=== PATIENT | female | born 1975 | race American Indian/Alaskan Native ===

== ENCOUNTER 2017-09-23 10:40 | Emergency (ER) | payer OTHER ==
[2017-09-23 10:45] VITALS: BP 136/73
--- NOTE | 2017-09-23 11:11 | Emergency Department Report ---
Chief Complaint: Vaginal Bleeding Stated Complaint: VAGINAL BLEEDING Time Seen by Provider: 09/23/17 11:09 - HPI History of Present Illness: 42-year-old female presents to the emergency department with complaint of some pelvic cramping and discomfort and some vaginal bleeding that started this morning. The patient did have intercourse last night. However the patient also has not had a regular menstrual cycle in multiple months. She has taken home test with negative results thus far. She has an OB/ RESPIRATORY CARE TECHNICIAN through [facility] jacob, Dr Bunn. - ROS Review of Systems: Positive for pelvic pain and vaginal bleeding, nausea without vomiting Negative for back pain, fever, dysuria, vaginal discharge - Exam Vital Signs: Vital Signs 09/23/17 10:42 Temperature 97.9 F Pulse Rate 77 Respiratory 18 Rate Blood Pressure 136/73 O2 Sat by Pulse 97 Oximetry Physical Exam: Patient is awake and alert in no acute distress. Heart and lungs sounds are normal to auscultation. No tenderness to palpation of the abdomen. MSE screening note: Focused history and physical exam performed. Due to findings the following was ordered: A CBC, urinalysis and urine test have been ordered. ED Disposition for MSE Condition: Stable Referrals: PRIMARY CARE, [Primary Care Provider] - 3-5 Days
[2017-09-23 11:39] LABS: HCG Qualitative,Urine Negative (Negative)
[2017-09-23 11:41] LABS: Bilirubin,Urine NEG (Negative); Blood,Urine LG (Negative); Color,Urine Yellow (Yellow); RBC,Urine > 182.0 /HPF (0.0-6.0); Urobilinogen,Urine < 2.0 mg/dL (<2.0)
[2017-09-23 11:48] LABS: Basophils % (Auto) 0.5 % (0.0-1.8); Eosinophils # (Auto) 0.1 K/mm3 (0.0-0.4); Eosinophils % (Auto) 1.4 % (0.0-4.3); Hematocrit 37.6 % (30.3-42.9); Hemoglobin 12.6 gm/dl (10.1-14.3); Lymphocytes % (Auto) 35.3 % (13.4-35.0); Mean Corpuscular HGB Conc 33 % (30-34); Mean Corpuscular Hemoglobin 32 pg (28-32); Mean Corpuscular Volume 96 fl (79-97); Monocytes # (Auto) 0.6 K/mm3 (0.0-0.8); Monocytes % (Auto) 10.7 % (0.0-7.3); Platelet Count 270 K/mm3 (140-440); Red Blood Count 3.92 M/mm3 (3.65-5.03); Red Cell Distribution Width 14.2 % (13.2-15.2)
[2017-09-23] MEDS ORDERED: NORCO 5/325 PO ONE (15:14)
--- NOTE | 2017-09-23 16:24 | Emergency Department Report ---
ED Female HPI - General Chief complaint: Vaginal Bleeding Stated complaint: VAGINAL BLEEDING Time Seen by Provider: 09/23/17 11:09 Source: patient Mode of arrival: Ambulatory Limitations: No Limitations - History of Present Illness Initial comments: This is a 42-year-old -[place] female that presents with abdominal cramping and vaginal bleeding that started this morning. Patient reports last period 07/16/2017. She had small amount of spotting. She does have a history of abnormal periods and fibroids. She did have intercourse last night and was concerned potentially something happened in between that time. She did take a home test and it was negative. Denies vaginal discharge fever, low back pain, pelvic pain, and nausea or vomiting. MD Complaint: vaginal bleeding -: This morning Location: other (generalized abdominal pain) Radiation: non-radiating Severity: mild Severity scale (0 -10): 5 Quality: cramping Consistency: intermittent Improves with: none Worsens with: none Are you Now?: No Last Menstrual Period: 07/16/17 EDC: 04/22/18 Associated Symptoms: vaginal bleeding, abdominal pain (cramping). denies: vaginal discharge, nausea/vomiting, fever/chills, headaches, loss of appetite, dysuria, hematuria, rash, seizure, shortness of breath, syncope, weakness - Related Data Sexually active: Yes : 0 Para: 0 A: 0 Allergies Allergy/AdvReac Type Severity Reaction Status Date / Time shellfish derived Allergy Hives Verified 09/23/17 10:42 ED Review of Systems ROS: Stated complaint: VAGINAL BLEEDING Other details as noted in HPI Constitutional: denies: chills, fever Respiratory: denies: cough, shortness of breath, wheezing Cardiovascular: denies: chest pain, palpitations Gastrointestinal: abdominal pain (cramping). denies: nausea, vomiting, diarrhea Genitourinary: abnormal menses (vaginal bleeding). denies: urgency, dysuria, frequency, hematuria, discharge Neurological: denies: headache, weakness, paresthesias Psychiatric: denies: anxiety, depression ED Past Medical Hx - Past Medical History Hx Psychiatric Treatment: Yes (depression) - Surgical History Past Surgical History?: No - Social History Smoking Status: Current Some Day Smoker Substance Use Type: Alcohol, Marijuana ED Physical Exam - General Limitations: No Limitations General appearance: alert, in no apparent distress - Respiratory Respiratory exam: Present: normal lung sounds bilaterally. Absent: respiratory distress, wheezes, rales, rhonchi, stridor, decreased breath sounds - Cardiovascular Cardiovascular Exam: Present: regular rate, normal rhythm, normal heart sounds. Absent: systolic murmur, diastolic murmur, rubs, gallop - GI/Abdominal GI/Abdominal exam: Present: soft, normal bowel sounds. Absent: distended, tenderness, guarding, rebound, rigid, organomegaly, mass - Neurological Exam Neurological exam: Present: alert, oriented X3, normal gait - Psychiatric Psychiatric exam: Present: normal affect, normal mood - Skin Skin exam: Present: warm, dry, intact, normal color. Absent: rash ED Course Vital Signs 09/23/17 10:42 Temperature 97.9 F Pulse Rate 77 Respiratory 18 Rate Blood Pressure 136/73 O2 Sat by Pulse 97 Oximetry ED Medical Decision Making - Lab Data Result diagrams: 09/23/17 11:27 - Medical Decision Making This is a 42 y.o. female presents with vaginal bleeding and abdominal cramping that started this morning. Patient was examined by me. Vitals stable. Obtained CBC, UA, HCG. All unremarkable. LMP 07/16/2017. Hx or abnormal menses. Discussed results with patient. Advised possibly menstruation and to f/u with [facility]. Take ibuprofen for pain. Discharged home in stable condition. Critical care attestation.: If time is entered above; I have spent that time in minutes in the direct care of this critically ill patient, excluding procedure time. ED Disposition Clinical Impression: Abnormal menses, Abdominal cramps, Menstruation Disposition: - TO HOME OR SELFCARE Is pt being admited?: No Does the pt Need Aspirin: No Condition: Stable Instructions: Menstruation (ED) Additional Instructions: Follow-up with [facility] in the next week. Take ibuprofen every 6 to 8 hours for pain. Calculate days and amount of menstruation to provide to [facility]. Referrals: [facility] [Outside] - 3-5 Days [facility] [Outside] - 3-5 Days [facility] [Outside] - 3-5 Days Forms: Work/School Release Form(ED) Time of Disposition: 16:25 Print Language: CONGOLESE
== END 2017-09-23 16:34 | disposition home or self-care (01) ==
LOC: ED 10:40
DX: N92.6 Irregular menstruation, unspecified (principal); R10.9 Unspecified abdominal pain
CPT/HCPCS: 36415; 81001; 81025; 85025